=== PATIENT | male | born 2000 | race Caucasian/White ===

== ENCOUNTER → 2020-07-06 | Outpatient (CLI) | payer BC ==
--- NOTE | 2020-07-06 11:50 | XR ---
EXAMINATION TYPE: XR chest 2V DATE OF EXAM: 07/06/2020 COMPARISON: 10/16/2005 INDICATION: Chest wall pain TECHNIQUE: Frontal and lateral views of the chest are obtained. FINDINGS: The heart size is normal. The pulmonary vasculature is normal. The lungs are clear. IMPRESSION: 1. No acute pulmonary process.
== END | disposition home or self-care (01) ==
LOC: RADXRMAIN 10:46
PROVIDERS: ATTEND Family Medicine
DX: R07.9 Chest pain, unspecified (principal)
CPT/HCPCS: 71046

== ENCOUNTER 2022-10-10 14:24 | Emergency (ER) | payer BC ==
[2022-10-10 14:41] VITALS: BP 130/79; PULSE 84; RESP 16; TEMP 97.7
[2022-10-10] MEDS ORDERED: DIPH,PERTUS(ACELL)TETVAC-LF 0.5 ML VIAL IM ONE (14:46)
[2022-10-10] MEDS ORDERED: ACETAMINOPHEN TAB 325 MG TAB PO STA (14:51)
[2022-10-10] MEDS ORDERED: IBUPROFEN 600 MG TAB PO STA (14:51)
[2022-10-10] MEDS ORDERED: BACITRACIN OINT 1 EACH PACKET TOPICAL ONE (14:53)
--- NOTE | 2022-10-10 15:03 | ED ---
Animal Bite HPI - General Chief Complaint: Animal Bite Stated Complaint: Dog Bite Time Seen by Provider: 10/10/22 14:45 Source: patient, family (mom), RN notes reviewed, old records reviewed Mode of arrival: ambulatory - History of Present Illness Initial Comments: This is a well-appearing 22-year-old male who presents to the emergency room after sustaining multiple abrasions and punctures from his pet mastiff dog after bite today around 1:00. Patient states he thinks he startled the dog which caused it to bite him. Patient states that he has no other injuries. Dog shots are up-to-date. He is unsure of his tetanus status is up-to-date. Mom at bedside. Patient does have a history of autism and asthma. MD Complaint: animal bite -: hour(s) (2) Left: Arm Animal: dog (Mastiff) Description: household pet Mechanism: bite, scratch Pain Description: dull Severity scale (1-10): 2 Context: other (startled dog) Associated Symptoms: none Treatments Prior to Arrival: irrigation - Related Data Patient Tetanus UTD: No Previous Rx's Medication Instructions Recorded Doxycycline [Vibramycin] 100 mg PO BID 14 Days #28 capsule 10/10/22 Allergies Allergy/AdvReac Type Severity Reaction Status Date / Time latex Allergy Rash/Hives Verified 10/10/22 14:41 Penicillins Allergy Rash/Hives Verified 10/10/22 14:41 Review of Systems ROS Statement: Those systems with pertinent positive or pertinent negative responses have been documented in the HPI. ROS Other: All systems not noted in ROS Statement are negative. Past Medical History Past Medical History: Asthma Additional Past Medical History / Comment(s): autistic History of Any Multi-Drug Resistant Organisms: None Reported Past Surgical History: No Surgical Hx Reported Past Psychological History: No Psychological Hx Reported Past Alcohol Use History: None Reported Past Drug Use History: None Reported General Exam Limitations: no limitations General appearance: alert, in no apparent distress Head exam: Present: atraumatic Eye exam: Present: normal appearance. Absent: scleral icterus, conjunctival injection Neck exam: Present: tenderness, full ROM. Absent: meningismus Respiratory exam: Present: normal lung sounds bilaterally. Absent: respiratory distress, wheezes, rales, rhonchi, stridor, chest wall tenderness, accessory muscle use Cardiovascular Exam: Present: regular rate Back exam: Present: normal inspection, full ROM. Absent: tenderness, CVA tenderness (R), CVA tenderness (L), rash noted Neurological exam: Present: alert, oriented X3, normal gait Psychiatric exam: Present: normal affect, normal mood Skin exam: Present: warm, dry, normal color, abrasion, other (3 abrasions to left shoulder with 1 puncture just distal, 1 puncture mid upper posterior upper arm, 1 puncture proximal forearm). Absent: rash, cyanosis, diaphoretic, urticaria, vesicles, petechiae, pallor, mottled Course Vital Signs 10/10/22 14:38 Temperature 97.7 F Pulse Rate 84 Respiratory 16 Rate Blood Pressure 130/79 O2 Sat by Pulse 97 Oximetry Medical Decision Making - Medical Decision Making Wounds were irrigated with saline. Patient did irrigate wounds at home. Unsure of his tetanus shot is up-to-date therefore was provided in the emergency room today. He was given Tylenol and Motrin for pain. Patient has an ALLERGY to penicillin and therefore he will be placed on doxycycline. Directed to place Neosporin and bandages on wounds and keep wounds covered. Follow-up with primary care doctor next week and return to the emergency within any new or concerning symptoms including f fevers, increased pain, swelling, redness or drainage. Case discussed with Dr. Pennington Disposition Clinical Impression: Dog bite Disposition: HOME SELF-CARE Condition: Good Instructions (If sedation given, give patient instructions): Animal Bite (ED) Additional Instructions: Keep wounds clean and covered with bacitracin or Neosporin dressings for the next couple of days. Take antibiotics as prescribed. Follow-up with primary care doctor next week. Return to the emergency room with a note concerning symptoms including increased redness pain or drainage. Prescriptions: Doxycycline [Vibramycin] 100 mg PO BID 14 Days #28 capsule Is patient prescribed a controlled substance at d/c from ED?: No Referrals: Domingo Forman DO [Primary Care Provider] - 1-2 days Time of Disposition: 15:03
== END 2022-10-10 15:22 | disposition home or self-care (01) ==
LOC: EC 14:24
DX: T14.8XXA Other injury of unspecified body region, initial encounter (principal); J45.909 Unspecified asthma, uncomplicated; Z91.040 Latex allergy status; Z88.0 Allergy status to penicillin; Z23 Encounter for immunization
CPT/HCPCS: 90471; 90715; 99283

== ENCOUNTER → 2024-04-16 | Outpatient (CLI) | payer BC ==
--- NOTE | 2024-04-17 10:12 | US ---
EXAMINATION TYPE: US extremity nonvasc mass ASH DATE OF EXAM: 04/16/2024 COMPARISON: NONE CLINICAL INDICATION: Male, 23 years old with history of M67.472 GANGLION M79.672 PAIN IN L FT M79.89 SOFT; Pt states pain right foot, palpable lump left foot at 1st metatarsal TECHNIQUE: Bilateral extremity (foot) mass FINDINGS: In area of pt's pain/palp on the right foot there is a small fluid collection= 1.1 x 0.3 x 1.7 cm In comparison- In area of pt's palp on left foot there is a larger fluid collection= 1.5 x 0.6 x 1.6 cm IMPRESSION: In the areas of clinical concern there are anechoic well circumscribed masses with through transmissi on consistent with cysts, left greater than right.
== END | disposition home or self-care (01) ==
LOC: RADUSWWP 16:31
PROVIDERS: ATTEND Podiatrist Foot & Ankle Surgery
DX: M67.472 Ganglion, left ankle and foot (principal); M79.672 Pain in left foot; M79.89 Other specified soft tissue disorders; M79.671 Pain in right foot; R22.41 Localized swelling, mass and lump, right lower limb
CPT/HCPCS: 76882

== ENCOUNTER 2024-05-24 17:47 | Emergency (ER) | payer BC ==
[2024-05-24 18:00] VITALS: TEMP 97.7
--- NOTE | 2024-05-24 18:13 | ED ---
Abdominal Pain HPI - General Chief Complaint: Abdominal Pain Stated Complaint: Abd pain Time Seen by Provider: 05/24/24 18:12 Source: patient, RN notes reviewed Mode of arrival: ambulatory Limitations: no limitations - History of Present Illness Initial Comments: 23-year-old male presented to ER with a chief complaint of right lower quadrant abdominal pain. He states pain has been ongoing for the past 2 days. He states that it started around his bellybutton but now is locating to his right lower quadrant. He does report recent diarrhea but is now constipated. He does report a decreased appetite. He denies any previous abdominal surgeries. Den ies any urinary complaints, fevers, chills, nausea, vomiting, chest pain or shortness of breath. Patient has been taking [id number] Tylenol and Motrin for pain control with minor relief. - Related Data Previous Rx's Medication Instructions Recorded Doxycycline [Vibramycin] 100 mg PO BID 14 Days #28 capsule 10/10/22 polyethylene glycoL 3350 [Miralax] 17 gm PO DAILY #527 gm 05/24/24 Allergies Allergy/AdvReac Type Severity Reaction Status Date / Time cefazolin Allergy Rash/Hives Verified 05/24/24 18:00 latex Allergy Rash/Hives Verified 10/10/22 14:41 Penicillins Allergy Rash/Hives Verified 10/10/22 14:41 Review of Systems ROS Statement: Those systems with pertinent positive or pertinent negative responses have been documented in the HPI. ROS Other: All systems not noted in ROS Statement are negative. Past Medical History Past Medical History: Asthma Additional Past Medical History / Comment(s): autistic History of Any Multi-Drug Resistant Organisms: None Reported Past Surgical History: No Surgical Hx Reported Past Psychological History: No Psychological Hx Reported Smoking Status: Never smoker Past Alcohol Use History: None Reported Past Drug Use History: None Reported General Exam - General Exam Comments Initial Comments: Visual Physical Exam Vital signs reviewed General: Well-appearing, nontoxic, no acute distress. Head: Normocephalic, atraumatic Eyes: PERRLA, EOMI ENT: Airway patent Chest: Nonlabored breathing Skin: No visual rash, normal skin tone Neuro: Alert and oriented 3 Musculoskeletal: No gross abnormalities Limitations: no limitations General appearance: alert, in no apparent distress Respiratory exam: Present: normal lung sounds bilaterally. Absent: respiratory distress, wheezes, rales, rhonchi, stridor Cardiovascular Exam: Present: regular rate, normal rhythm, normal heart sounds. Absent: systolic murmur, diastolic murmur, rubs, gallop, clicks GI/Abdominal exam: Present: soft, tenderness (RLQ), normal bowel sounds Extremities exam: Present: normal inspection, full ROM, normal capillary refill. Absent: tenderness, pedal edema, joint swelling, calf tenderness Neurological exam: Present: alert, oriented X3, CN II-XII intact Skin exam: Present: warm, dry, intact, normal color. Absent: rash Course Vital Signs 05/24/24 05/24/24 17:57 21:47 Temperature 97.7 F Pulse Rate 67 66 Respiratory 16 15 Rate Blood Pressure 136/86 105/84 O2 Sat by Pulse 99 100 Oximetry Medical Decision Making - Medical Decision Making I performed the quick note portion of this chart. Electronically signed by Earl Sosa PA-C Was pt. sent in by a medical professional or institution ([facility], [facility], urgent care, hospital, or long-term...) When possible be specific @ -No Did you speak to anyone other than the patient for history (EMS, parent, family, police, friend...)? What history was obtained from this source @ -Mother aiding in HPI and past medical history Did you review nursing and triage notes (agree or disagree)? Why? @ -I reviewed and agree with nursing and triage notes Were old charts reviewed (outside hosp., previous admission, EMS record, old EKG, old radiological studies, urgent care reports/EKG's, long-term records)? Report findings @ -No old charts were reviewed Differential Diagnosis (chest pain, altered mental status, abdominal pain women, abdominal pain men, vaginal bleeding, weakness, fever, dyspnea, syncope, headache, dizziness, GI bleed, back pain, seizure, CVA, palpatations, mental health, musculoskeletal)? @ -Differential Abdominal Pain Men:Appendicitis, cholecystitis, diverticulosis, ischemic bowel, pancreatitis, hepatitis, UTI, gastroenteritis, AAA, incarcerated hernia, bowel obstruction, constipation, inflammatory bowel, hepatitis, peptic ulcer disease, splenic infarction, perforated viscus, testicular torsion, this is not meant to be an all-inclusive list EKG interpreted by me (3pts min.). @ -None X-rays interpreted by me (1pt min.). @ -None done CT interpreted by me (1pt min.). @ -CT abdomen pelvis negative for acute intra-abdominal process. U/S interpreted by me (1pt. min.). @ -None done What testing was considered but not performed or refused? (CT, X-rays, U/S, labs)? Why? @ -None What meds were considered but not given or refused? Why? @ -None Did you discuss the management of the patient with other professionals (professionals i.e. , PA, [facility], lab, RT, psych nurse, social work administrator, nuclear criticality safety engineer, teacher, chief strategy officer, child support case officer)? Give summary @ -No Was smoking cessation discussed for >3mins.? @ -No Was critical care preformed (if so, how long)? @ -No Were there social determinants of health that impacted care today? How? (Homelessness, low income, unemployed, alcoholism, drug addiction, transportation, low edu. Level, literacy, decrease access to med. care, fci, rehab)? @ -No Was there de-escalation of care discussed even if they declined (Discuss DNR or withdrawal of care, Hospice)? DNR status @ -No What co-morbidities impacted this encounter? (DM, HTN, Smoking, COPD, CAD, Cancer, CVA, ARF, Chemo, Hep., AIDS, mental health diagnosis, sleep apnea, morbid obesity)? @ -None Was patient admitted / discharged? Hospital course, mention meds given and route, prescriptions, significant lab abnormalities, going to OR and other pertinent info. @ -Discharge. 23-year-old male presented to ER with a chief complaint of right lower quadrant abdominal pain. History and physical exam completed. Vitals stable. Patient in no signs of acute distress and nontoxic-appearing. Abdominal exam remarkable for right lower quadrant abdominal tenderness with normal bowel sounds. No rebound or guarding. No erythema, bruising, rash or wounds on skin. Laboratory studies obtained unremarkable. Urine analysis with trace protein concerning of dehydration. Patient did received IV fluids and Toradol for symptom control in the ER. CT abdomen pelvis negative for acute process. Upon reevaluation, patient resting comfortably in exam room in no signs of acute distress. Results discussed with patient, all questions answered. Advise close follow-up with PCP. MiraLAX prescribed. Return pa rameters discussed. Patient discharged in stable condition. Patient and mother, at bedside, verbally expressed understanding agree with care plan. Case discussed with ED attending, Dr. Kearney. Undiagnosed new problem with uncertain prognosis? @ -No Drug Therapy requiring intensive monitoring for toxicity (Heparin, Nitro, Insulin, Cardizem)? @ -No Were any procedures done? @ -No Diagnosis/symptom? @ -Abdominal pain/constipation Acute, or Chronic, or Acute on Chronic? @ -Acute Uncomplicated (without systemic symptoms) or Complicated (systemic symptoms)? @ -Uncomplicated Side effects of treatment? @ -No Exacerbation, Progression, or Severe Exacerbation? @ -No Poses a threat to life or bodily function? How? (Chest pain, USA, IA, pneumonia, PE, COPD, DKA, ARF, appy, cholecystitis, CVA, Diverticulitis, Homicidal, Suicidal, threat to staff... and all critical care pts) @ -No - Lab Data Result diagrams: 05/24/24 18:40 05/24/24 18:40 Lab Results 05/24/24 05/24/24 05/24/24 Range/Units 18:40 18:40 18:40 WBC 10.4 (3.8-10.6) k/uL RBC 5.82 (4.30-5.90) m/uL Hgb 17.1 (13.0-17.5) gm/dL Hct 51.1 (39.0-53.0) % MCV 87.8 (80.0-100.0) fL MCH 29.4 (25.0-35.0) pg MCHC 33.5 (31.0-37.0) g/dL RDW 12.9 (11.5-15.5) % Plt Count 253 (150-450) k/uL MPV 7.7 Neutrophils % 60 % Lymphocytes % 29 % Monocytes % 5 % Eosinophils % 3 % Basophils % 1 % Neutrophils # 6.2 (1.3-7.7) k/uL Lymphocytes # 3.0 (1.0-4.8) k/uL Monocytes # 0.5 (0-1.0) k/uL Eosinophils # 0.4 (0-0.7) k/uL Basophils # 0.1 (0-0.2) k/uL Sodium 139 (137-145) mmol/L Potassium 4.1 (3.5-5.1) mmol/L Chloride 105 (98-107) mmol/L Carbon Dioxide 26 (22-30) mmol/L Anion Gap 8 mmol/L BUN 14 (9-20) mg/dL Creatinine 0.76 (0.66-1.25) mg/dL Est GFR (CKD-EPI)AfAm >90 (>60 ml/min/1.73 sqM) Est GFR (CKD-EPI)NonAf >90 (>60 ml/min/1.73 sqM) Glucose 92 (74-99) mg/dL Plasma Lactic Acid Johnnie (0.7-2.0) mmol/L Calcium 10.1 (8.4-10.2) mg/dL Total Bilirubin 0.6 (0.2-1.3) mg/dL AST 32 (17-59) U/L ALT 35 (4-49) U/L Alkaline Phosphatase 59 (38-126) U/L Total Protein 7.6 (6.3-8.2) g/dL Albumin 4.8 (3.5-5.0) g/dL Urine Color Light Yellow Urine Appearance Clear (Clear) Urine pH 6.0 (5.0-8.0) Ur Specific [place] >1.050 H (1.001-1.035) Urine Protein Trace H (Negative) Urine Glucose (UA) Negative (Negative) Urine Ketones Negative (Negative) Urine Blood Negative (Negative) Urine Nitrite Negative (Negative) Urine Bilirubin Negative (Negative) Urine Urobilinogen <2.0 (<2.0) mg/dL Ur Leukocyte Esterase Negative (Negative) 05/24/24 Range/Units 18:40 WBC (3.8-10.6) k/uL RBC (4.30-5.90) m/uL Hgb (13.0-17.5) gm/dL Hct (39.0-53.0) % MCV (80.0-100.0) fL MCH (25.0-35.0) pg MCHC (31.0-37.0) g/dL RDW (11.5-15.5) % Plt Count (150-450) k/uL MPV Neutrophils % % Lymphocytes % % Monocytes % % Eosinophils % % Basophils % % Neutrophils # (1.3-7.7) k/uL Lymphocytes # (1.0-4.8) k/uL Monocytes # (0-1.0) k/uL Eosinophils # (0-0.7) k/uL Basophils # (0-0.2) k/uL Sodium (137-145) mmol/L Potassium (3.5-5.1) mmol/L Chloride (98-107) mmol/L Carbon Dioxide (22-30) mmol/L Anion Gap mmol/L BUN (9-20) mg/dL Creatinine (0.66-1.25) mg/dL Est GFR (CKD-EPI)AfAm (>60 ml/min/1.73 sqM) Est GFR (CKD-EPI)NonAf (>60 ml/min/1.73 sqM) Glucose (74-99) mg/dL Plasma Lactic Acid Johnnie 0.7 (0.7-2.0) mmol/L Calcium (8.4-10.2) mg/dL Total Bilirubin (0.2-1.3) mg/dL AST (17-59) U/L ALT (4-49) U/L Alkaline Phosphatase (38-126) U/L Total Protein (6.3-8.2) g/dL Albumin (3.5-5.0) g/dL Urine Color Urine Appearance (Clear) Urine pH (5.0-8.0) Ur Specific [place] (1.001-1.035) Urine Protein (Negative) Urine Glucose (UA) (Negative) Urine Ketones (Negative) Urine Blood (Negative) Urine Nitrite (Negative) Urine Bilirubin (Negative) Urine Urobilinogen (<2.0) mg/dL Ur Leukocyte Esterase (Negative) - Radiology Data Radiology results: report reviewed, image reviewed Disposition Clinical Impression: Abdominal pain, Constipation Disposition: HOME SELF-CARE Condition: Stable Instructions (If sedation given, give patient instructions): Abdominal Pain (ED) Additional Instructions: Please follow-up with PCP. Return to ER for any new or worsening concerns. Prescriptions: polyethylene glycoL 3350 [Miralax] 17 gm PO DAILY #527 gm Is patient prescribed a controlled substance at d/c from ED?: No Referrals: Domingo Forman DO [Primary Care Provider] - 1-2 days Time of Disposition: 21:26
[2024-05-24] MEDS: KETOROLAC 15 MG/ML 1 ML VIAL IVP STA (18:47)
[2024-05-24] MEDS: SODIUM CHLORIDE 0.9% 1,000 ML IV STA (18:49)
[2024-05-24 18:57] LABS: Basophils # (A) 0.1 k/uL (0-0.2); Basophils % (A) 1 %; Eosinophils # (A) 0.4 k/uL (0-0.7); Eosinophils % (A) 3 %; HCT 51.1 % (39.0-53.0); HGB 17.1 gm/dL (13.0-17.5); Lymphocytes % (A) 29 %; MCH 29.4 pg (25.0-35.0); MCHC 33.5 g/dL (31.0-37.0); MCV 87.8 fL (80.0-100.0); Mean Platelet Volume 7.7; Monocytes # (A) 0.5 k/uL (0-1.0); Monocytes % (A) 5 %; Neutrophils # (A) 6.2 k/uL (1.3-7.7); Neutrophils % (A) 60 %; Platelet Count 253 k/uL (150-450); RBC 5.82 m/uL (4.30-5.90); RDW 12.9 % (11.5-15.5); WBC 10.4 k/uL (3.8-10.6)
[2024-05-24 19:07] LABS: ALT 35 U/L (4-49); AST 32 U/L (17-59); African American GFR (CKD) >90 (>60 ml/min/1.73 sqM); Albumin 4.8 g/dL (3.5-5.0); Alkaline Phosphatase 59 U/L (38-126); Anion Gap 8 mmol/L; Blood Urea Nitrogen 14 mg/dL (9-20); Calcium 10.1 mg/dL (8.4-10.2); Carbon Dioxide 26 mmol/L (22-30); Chloride 105 mmol/L (98-107); Glucose 92 mg/dL (74-99); Non-African American GFR(CKD) >90 (>60 ml/min/1.73 sqM); Potassium 4.1 mmol/L (3.5-5.1); Sodium 139 mmol/L (137-145); Total Bilirubin 0.6 mg/dL (0.2-1.3); Total Protein 7.6 g/dL (6.3-8.2)
--- NOTE | 2024-05-24 20:45 | CT ---
EXAMINATION TYPE: CT abdomen pelvis w con CT DLP: 1016.5 mGycm, Automated exposure control for dose reduction was used. DATE OF EXAM: 05/24/2024 7:09 PM COMPARISON: None. CLINICAL INDICATION:Male, 23 years old with history of RLQ abd pain; RLQ pain TECHNIQUE: Axial CT of the abdomen and pelvis. Sagittal and coronal reformats were created on a [id number] workstation. Contrast used:100 ml mL of Isovue 300 with IV Contrast, (none if empty) Oral contrast used: without Oral Contrast (none if empty) FINDINGS: LOWER CHEST: Unremarkable ABDOMEN LIVER: Unremarkable GALLBLADDER AND BILE DUCTS: Unremarkable gallbladder. No biliary ductal dilatation. PANCREAS: Unremarkable. SPLEEN: Unremarkable. ADRENAL GLANDS: Unremarkable. KIDNEYS AND URETERS: Kidneys enhance symmetrically. No evidence of hydronephrosis or visible renal ca lculus. The ureters are unremarkable. PELVIS BLADDER: Unremarkable REPRODUCTIVE: Unremarkable. ABDOMEN & PELVIS STOMACH AND BOWEL: Stomach and small bowel are nondistended, no evidence of obstruction. No evidenc e of appendicitis. Moderate stool throughout colon without evidence of an acute abnormality. PERITONEUM/RETROPERITONEUM: No evidence of pneumoperitoneum or free fluid. VASCULATURE: Aorta and major branches are grossly unremarkable. No AAA. LYMPH NODES: No enlarged nodes by CT size criteria. SOFT TISSUE/ABDOMINAL WALL: Unremarkable MUSCULOSKELETAL: No acute osseous abnormalities. IMPRESSION: No acute abnormality in the abdomen or pelvis.
[2024-05-24 21:17] LABS: Appearance,Urine Clear (Clear); Bilirubin,Urine Negative (Negative); Blood,Urine Negative (Negative); Color,Urine Light Yellow; Glucose,Urine (UA) Negative (Negative); Ketones,Urine Negative (Negative); Leukocyte Esterase,Urine Negative (Negative); Nitrite,Urine Negative (Negative); Protein,Urine Trace (Negative); Urobilinogen,Urine <2.0 mg/dL (<2.0)
[2024-05-24 21:18] LABS: Specific Gravity,Urine >1.050 (1.001-1.035)
[2024-05-24 21:48] VITALS: BP 105/84; PULSE 66; RESP 15
== END 2024-05-24 21:50 | disposition home or self-care (01) ==
LOC: EC 17:47
DX: R10.9 Unspecified abdominal pain
CPT/HCPCS: 36415; 74177; 80053; 81003; 83605; 85025; 96361; 96374; 99284

== ENCOUNTER 2024-10-22 17:26 | Emergency (ER) | payer OTHER, BC ==
--- NOTE | 2024-10-22 18:11 | ED ---
Skin/Abscess/FB HPI - General Source: patient, RN notes reviewed Mode of arrival: ambulatory Limitations: no limitations <Cally Dobbs - Last Filed: 10/22/24 18:08> <Vicente Pennington - Last Filed: 10/22/24 19:00> - General Chief complaint: Skin/Abscess/Foreign Body Stated complaint: i[facility], burn Time Seen by Provider: 10/22/24 18:00 - History of Present Illness Initial comments: Quick Note: This is a 24-year-old male who presents to the emergency department for a burn to his left forearm. States that he acquired this at work earlier today. At work they put burn guard and silver sulfadiazine cream on it, which he found beneficial. This is not particularly painful at this time. Believes that his tetanus vaccine is up-to-date. (Cally Dobbs) Dictation was produced using [employer] dictation software. please excuse any grammatical, word or spelling errors. Chief Complaint: 24-year-old male presents emergency department left forearm burn History of Present Illness: Patient is 24-year-old male he states that he works at [employer]. At around 3:00 PM he accidentally brushed his left forearm onto a hot piece of metal of the frying machine. Patient presents with [employer] paperwork. The ROS documented in this emergency department record has been reviewed and confirmed by me. Those systems with pertinent positive or negative responses have been documented in the HPI. All other systems are other negative and/or noncontributory. (Vicente Pennington) - Related Data Previous Rx's Medication Instructions Recorded Doxycycline [Vibramycin] 100 mg PO BID 14 Days #28 capsule 10/10/22 polyethylene glycoL 3350 [Miralax] 17 gm PO DAILY #527 gm 05/24/24 Bacitracin Zinc Oint 1 applic TOPICAL TID 14 Days #28 gm 10/22/24 Allergies Allergy/AdvReac Type Severity Reaction Status Date / Time cefazolin Allergy Rash/Hives Verified 10/22/24 18:16 latex Allergy Rash/Hives Verified 10/22/24 18:16 Penicillins Allergy Rash/Hives Verified 10/22/24 18:16 Review of Systems ROS Other: All systems not noted in ROS Statement are negative. <Cally Dobbs - Last Filed: 10/22/24 18:08> ROS Other: All systems not noted in ROS Statement are negative. <Vicente Pennington - Last Filed: 10/22/24 19:00> ROS Statement: Those systems with pertinent positive or pertinent negative responses have been documented in the HPI. Past Medical History Past Medical History: Asthma Additional Past Medical History / Comment(s): autistic History of Any Multi-Drug Resistant Organisms: None Reported Past Surgical History: No Surgical Hx Reported Past Psychological History: No Psychological Hx Reported Smoking Status: Never smoker Past Alcohol Use History: None Reported Past Drug Use History: None Reported <Cally Dobbs - Last Filed: 10/22/24 18:08> General Exam <Cally Dobbs - Last Filed: 10/22/24 18:08> <Vicente Pennington - Last Filed: 10/22/24 19:00> - General Exam Comments Initial Comments: Visual Physical Exam Vital signs reviewed General: Well-appearing, nontoxic, no acute distress. Head: Normocephalic, atraumatic Eyes: PERRLA, EOMI ENT: Airway patent Chest: Nonlabored breathing Skin: Burn to left forearm Neuro: Alert and oriented 3 Musculoskeletal: No gross abnormalities (Cally Dobbs) General: Well-appearing, nontoxic, no acute distress. Head: Normocephalic, atraumatic Eyes: PERRLA, EOMI ENT: Airway patent Chest: Nonlabored breathing Skin: No visual rash, normal skin tone,, first-degree burn measuring approximately 4 x 8 cm to the left forearm Neuro: Alert and oriented 3 Musculoskeletal: No gross abnormalities (Vicente Pennington) Course Vital Signs 10/22/24 18:14 Temperature 98.1 F Pulse Rate 58 L Respiratory 18 Rate Blood Pressure 132/80 O2 Sat by Pulse 100 Oximetry Medical Decision Making <aClly Dobbs - Last Filed: 10/22/24 18:08> <Vicente Pennington - Last Filed: 10/22/24 19:00> - Medical Decision Making I performed the QuickNote portion of this chart. Signed Cally Dobbs PA-C. (Cally Dobbs) Was pt. sent in by a medical professional or institution (, PA, FABRIC CUTTER, urgent care, hospital, or [facility]...) When possible be specific @ -No Did you speak to anyone other than the patient for history (EMS, parent, family, police, friend...)? What history was obtained from this source @ -No Did you review nursing and triage notes (agree or disagree)? Why? @ -I reviewed and agree with nursing and triage notes Were old charts reviewed (outside hosp., previous admission, EMS record, old EKG, old radiological studies, urgent care reports/EKG's, [facility] records)? Report findings @ -No old charts were reviewed Differential Diagnosis (chest pain, altered mental status, abdominal pain women, abdominal pain men, vaginal bleeding, musculoskeletal, weakness, fever, dyspnea, syncope, headache, dizziness, GI bleed, back pain, seizure, CVA, palpatations, mental health)? @ -First-degree burn, second-degree arm, third-degree burn EKG interpreted by me (3pts min.). @ -None done X-rays interpreted by me (1pt min.). @ -None done CT interpreted by me (1pt min.). @ -None done U/S interpreted by me (1pt. min.). @ -None done What testing was considered but not performed or refused? (CT, X-rays, U/S, labs)? Why? @ -None What meds were considered but not given or refused? Why? @ -None Was smoking cessation discussed for >3mins.? @ -No Were there social determinants of health that impacted care today? How? (Homelessness, low income, unemployed, alcoholism, drug addiction, transportation, low edu. Level, literacy, decrease access to med. care, halfway, rehab)? @ -No Was there de-escalation of care discussed even if they declined (Discuss DNR or withdrawal of care, Hospice)? DNR status @ -No What co-morbidities impacted this encounter? (DM, HTN, Smoking, COPD, CAD, Cancer, CVA, ARF, Chemo, Hep., AIDS, mental health diagnosis, sleep apnea, morbid obesity)? @ -None Was patient admitted / discharged? Hospital course, mention meds given and ro chato, prescriptions, significant lab abnormalities, going to OR and other pertinent info. @ -24-year-old male with first-degree burn to his left forearm. It is not circumferential in nature. Vital signs stable. Patient given topical antibiotics. Patient cleared for discharge. He is cleared to work tomorrow so long as he keeps the wound clean dry and intact. Patient provided with topical bacitracin Did you discuss the management of the patient with other professionals (professionals i.e. , PA, FABRIC CUTTER, lab, RT, psych nurse, social services coordinator, divorce lawyer, teacher, traffic control officer, case advocate)? Give summary @ -No Was critical care preformed (if so, how long)? @ -No Undiagnosed new problem with uncertain prognosis? @ -No Drug Therapy requiring intensive monitoring for toxicity (Heparin, Nitro, Insulin, Cardizem)? @ -No Were any procedures done? @ -No Diagnosis/symptom? Acute, or Chronic, or Acute on Chronic? Uncomplicated (without systemic symptoms) or Complicated (systemic symptoms)? @ -Left forearm first-degree burn Side effects of treatment? @ -No Exacerbation, Progression, or Severe Exacerbation? @ -No Poses a threat to life or bodily function? How? (Chest pain, USA, AR, pneumonia, PE, COPD, DKA, ARF, appy, cholecystitis, CVA, Diverticulitis, Homicidal, Suicidal, threat to staff... and all critical care pts) @ -No (Vicente Pennington) Disposition <Cally Dobbs - Last Filed: 10/22/24 18:08> Is patient prescribed a controlled substance at d/c from ED?: No <Vicente Pennington - Last Filed: 10/22/24 19:00> Clinical Impression: First degree burn Disposition: HOME SELF-CARE Condition: Good Prescriptions: Bacitracin Zinc Oint 1 applic TOPICAL TID 14 Days #28 gm Referrals: Domingo Forman DO [Primary Care Provider] - 1-2 days
[2024-10-22] MEDS: BACITRACIN OINT 1 EACH PACKET TOPICAL ONE (19:23)
[2024-10-22 19:28] VITALS: BP 127/80; PULSE 53; RESP 16; TEMP 98.9
== END 2024-10-22 19:28 | disposition home or self-care (01) ==
LOC: EC 17:26
DX: T22.012A Burn of unspecified degree of left forearm, initial encounter (principal); Z02.83 Encounter for blood-alcohol and blood-drug test
CPT/HCPCS: 99499

== ENCOUNTER → 2025-04-08 | Outpatient (CLI) | payer BC ==
--- NOTE | 2025-04-08 17:05 | CT ---
EXAMINATION TYPE: CT facial bones wo con CT DLP: 718.7 mGycm, Automated exposure control for dose reduction was used. DATE OF EXAM: 04/08/2025 4:58 PM COMPARISON: None. 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 Coronal, axial and sagittal reformatted images were also provided in soft tissue and bone windows and submitted for interpretation. FINDINGS: There is no evidence of fracture, subluxation, dislocation, or significant soft tissue swelling. The orbital contents are unremarkable. The temporal-mandibular joints appear symmetric and unremarkable. Minimal mucosal thickening of the right anterior and left posterior ethmoid sinuses. The remaining pa ranasal sinuses are clear. Small left-sided palatine tonsillolith. IMPRESSION: The temporal-mandibular joints appear symmetric and unremarkable. [facility], , 04/08/2025 5:03 PM
== END | disposition home or self-care (01) ==
LOC: RADCTMAIN 16:00
PROVIDERS: ATTEND Nurse Practitioner Family
DX: M26.601 Right temporomandibular joint disorder, unspecified (principal)
CPT/HCPCS: 70486